=== PATIENT | male | born 1975 | race African-American/Black ===

== ENCOUNTER 2017-03-25 06:28 | Emergency (ER) | payer SELFPAY ==
[2017-03-25 06:51] LABS: #Eosinphils 0.1 thou/uL (0.0-0.7); #Lymphocytes 2.9 thou/uL (1.20-3.40); #Monocytes 0.5 thou/uL (0.11-0.59); #Neutrophils 3.3 thou/uL (1.40-6.50); %Basophils 0.5 % (0.0-1.0); %Eosinophils 1.2 % (0.0-10.0); %Lymphocytes 42.1 % (21.0-51.0); %Monocytes 7.8 % (0.0-10.0); Hematocrit 40.9 % (42.0-52.0); Mean Platelet Volume 6.8 fL (7.4-10.4); White Blood Cell (WBC) Count 6.9 thou/uL (4.8-10.8)
[2017-03-25 07:12] LABS: ALT (SGPT) 13 U/L (8-55); AST (SGOT) 16 U/L (5-34); Alkaline Phosphatase 86 U/L (40-150); Anion Gap 14 mmol/L (10-20); BUN (Urea Nitrogen) 14 mg/dL (8.9-20.6); Bilirubin, Total 0.6 mg/dL (0.2-1.2); CK (CPK) 221 U/L (30-200); Calc. Creatinine Clearance 0 mL/min (70-130); Calcium 9.5 mg/dL (7.8-10.44); Carbon Dioxide 27 mmol/L (22-29); Chloride 101 mmol/L (98-107); Estimated GFR-MDRD 74; Globulin 3.5 g/dL (2.4-3.5)
[2017-03-25] MEDS ORDERED: Methocarbamol 1 GM in Sodium Chloride 0.9% 100 ML IVPB ONE (07:15)
[2017-03-25 07:17] LABS: Troponin I Less than 0.010 ng/mL (< 0.028)
--- NOTE | 2017-03-25 07:51 | RAD ---
CHEST UPRIGHT PORTABLE: HISTORY: A 41-year-old male with a history of chest pain since yesterday with shortness of breath. COMPARISON: The heart size is normal. The lungs are clear. No pneumonia, edema, pleural effusion, or other acu te process. POS: [facility]
[2017-03-25] MEDS ORDERED: hydrALAZINE 20 MG/ML VIAL ONE (09:32)
[2017-03-25] MEDS ORDERED: cloNIDine 0.1 MG TAB ONE (11:23)
--- NOTE | 2017-05-12 12:32 | EKG ---
Test Reason : Blood Pressure : / mmHG Vent. Rate : 107 BPM Atrial Rate : 107 BPM P-R Int : 148 ms QRS Dur : 092 ms QT Int : 338 ms P-R-T Axes : 073 040 -04 degrees QTc Int : 451 ms Sinus tachycardia Nospecific ST-T segment abnormalities Otherwise normal ECG Confirmed by JULIAN LASSITER ([id number]), electronic news gathering editor NEO CRUZ ([id number] on 05/12/2017 12:32:03 PM Referred By: Confirmed By:JULIAN LASSITER
== END 2017-03-25 11:45 | disposition home or self-care (01) ==
LOC: ERS 06:28
DX: R07.89 Other chest pain (principal); I10 Essential (primary) hypertension; F17.210 Nicotine dependence, cigarettes, uncomplicated
CPT/HCPCS: 36415; 71010; 80053; 82553; 84484; 85025; 85379; 93005; 96365; 96375; 96376; 99406; J0360; J2800; J7050

== ENCOUNTER 2017-09-10 22:29 | Emergency (ER) | payer SELFPAY ==
--- NOTE | 2017-09-10 23:31 | RAD ---
RIGHT KNEE FOUR VIEWS: 09/10/2017 HISTORY: Right knee pain and swelling. COMPARISON: None. FINDINGS: There is no knee joint effusion, displaced fracture, or evidence of dislocation. There is enthesophy te formation at the insertion of the quadriceps tendon. IMPRESSION: No acute findings. POS: [facility]
[2017-09-11] MEDS ORDERED: Ketorolac Tromethamine 60 MG/2 ML VIAL ONE (01:04)
[2017-09-11] MEDS ORDERED: Methocarbamol 500 MG TAB PO SCH (01:15)
== END 2017-09-11 01:50 | disposition home or self-care (01) ==
LOC: ERS 22:29
DX: M54.31 Sciatica, right side (principal); I10 Essential (primary) hypertension; F17.210 Nicotine dependence, cigarettes, uncomplicated; Z79.899 Other long term (current) drug therapy
CPT/HCPCS: 96372; 99406; J1885

== ENCOUNTER 2018-09-23 11:19 | Emergency (ER) | payer SELFPAY ==
[2018-09-23 12:21] LABS: #Eosinphils 0.1 thou/uL (0.0-0.7); #Lymphocytes 2.6 thou/uL (1.20-3.40); #Monocytes 0.6 thou/uL (0.11-0.59); %Basophils 0.5 % (0.0-1.0); %Eosinophils 1.4 % (0.0-10.0); %Lymphocytes 35.2 % (21.0-51.0); %Neutrophils 54.9 % (42.0-75.0); Hemoglobin 14.1 g/dL (14.0-18.0); Mean Corpuscular HGB CONC 34.1 g/dL (32.0-36.0); Mean Corpuscular Hemoglobin 32.4 pg (27.0-31.0); Mean Corpuscular Volume 94.9 fL (78.0-98.0); Mean Platelet Volume 7.3 fL (7.4-10.4); Platelet Count 216 thou/uL (130-400); RBC Distribution Width 11.7 % (11.5-14.5); Red Blood Cell (RBC) Count 4.35 mill/uL (4.70-6.10); White Blood Cell (WBC) Count 7.3 thou/uL (4.8-10.8)
[2018-09-23 12:25] LABS: Bilirubin Negative (Negative); Blood, Urine Negative (Negative); Clarity CLEAR (Clear); Glucose, Urine (Dipstick) Negative (Negative); Leukocyte Negative (Negative); Nitrite Negative (Negative); Protein, Urine (Dipstick) Trace mg/dL (Neg-Trace); Specific Gravity, Urine 1.027 (1.002-1.036); pH, Urine 6.5 (5.0-9.0)
[2018-09-23 12:40] LABS: ALT (SGPT) 20 U/L (8-55); AST (SGOT) 18 U/L (5-34); Albumin 4.3 g/dL (3.5-5.0); Alkaline Phosphatase 87 U/L (40-150); Anion Gap 10 mmol/L (10-20); BUN (Urea Nitrogen) 22 mg/dL (8.9-20.6); Bilirubin, Total 0.4 mg/dL (0.2-1.2); Calc. Creatinine Clearance 0 mL/min (70-130); Calcium 9.4 mg/dL (7.8-10.44); Carbon Dioxide 30 mmol/L (22-29); Chloride 101 mmol/L (98-107); Estimated GFR-MDRD 63; Globulin 3.1 g/dL (2.4-3.5); Glucose 95 mg/dL (70-105); Potassium 4.1 mmol/L (3.5-5.1); Protein, Total 7.4 g/dL (6.0-8.3); Sodium 137 mmol/L (136-145)
[2018-09-23] MEDS ORDERED: Ketorolac Tromethamine 60 MG/2 ML VIAL ONE (15:41)
== END 2018-09-23 16:00 | disposition home or self-care (01) ==
LOC: ERS 11:19
DX: M54.32 Sciatica, left side (principal); I10 Essential (primary) hypertension; F17.210 Nicotine dependence, cigarettes, uncomplicated; Z79.899 Other long term (current) drug therapy
CPT/HCPCS: 36415; 80053; 81003; 85025; 96372; J1885

== ENCOUNTER 2019-10-31 09:31 | Emergency (ER) | payer SELFPAY ==
[2019-10-31] MEDS ORDERED: Adacel (T-DAP) 0.5 ML SYRINGE ONE ×2 (09:42→09:53)
[2019-10-31] MEDS ORDERED: Ibuprofen 200 MG TAB ONE (09:53)
[2019-10-31] MEDS ORDERED: Lidocaine 1% (PF) 30 ML VIAL ONE (09:53)
--- NOTE | 2019-10-31 09:58 | RAD ---
Exam:Left hand second digit 3 views HISTORY: Laceration. Puncture wound from injury. COMPARISON: None FINDINGS: No fracture, cortical irregularity or periosteal reaction. No radiopaque foreign body. IMPRESSION: 1. No radiopaque foreign body 2. No fracture
== END 2019-10-31 10:36 | disposition home or self-care (01) ==
LOC: ERS 09:31
DX: S61.211A Laceration without foreign body of left index finger without damage to nail, initial encounter (principal); S61.231A Puncture wound without foreign body of left index finger without damage to nail, initial encounter; I10 Essential (primary) hypertension; F17.210 Nicotine dependence, cigarettes, uncomplicated; Z23 Encounter for immunization; Z79.899 Other long term (current) drug therapy; W26.8XXA Contact with other sharp object(s), not elsewhere classified, initial encounter; Y92.009 Unspecified place in unspecified non-institutional (private) residence as the place of occurrence of the external cause
CPT/HCPCS: 12001; 90471; 90715; J2001